=== PATIENT | male | born 1995 | race Caucasian/White ===

== ENCOUNTER 2017-10-30 15:47 | Emergency (ER) | payer MEDICAID ==
[~2017-10-30] VITALS: Ht 162.6 cm; Wt 80.9 kg
[2017-10-30 16:24] VITALS: BP 108/74
--- NOTE | 2017-10-30 16:31 | NUR ---
PT AMBULATES TO BED 1, REPORT GIVEN TO MICA OSHEA
[2017-10-30 16:49] VITALS: BP 108/74
--- NOTE | 2017-10-30 16:49 | NUR ---
PATIENT LEFT WITHOUT BEING SEEN BY DR. SAMANO. NO FURTHER CARE PROVIDED FOR PATIENT. ER MD SAMANO NOTIFIED.
== END 2017-10-30 16:49 | disposition left against medical advice (07) ==
LOC: MED 15:47
DX: M79.641 Pain in right hand (principal); Z53.21 Procedure and treatment not carried out due to patient leaving prior to being seen by health care provider